=== PATIENT | female | born 1950 | race Caucasian/White ===

== ENCOUNTER 2016-12-27 18:39 | Emergency (ER) | payer OTHER ==
[~2016-12-27] VITALS: Ht 144.8 cm; Wt 70.3 kg
[2016-12-27] MEDS ORDERED: [UNRECOGNIZED DRUG - OTHER] (18:46)
[2016-12-27] MEDS ORDERED: PROZAC20 MG PO (18:47)
[2016-12-27] MEDS ORDERED: PROTONIX40 M4 (18:48)
[2016-12-27] MEDS ORDERED: MOBIC15 MG PO (20:43)
[2016-12-27 20:45] VITALS: BP 145/79
[2016-12-27] MEDS ORDERED: NORCO 5-325 TA1 EACH PO (20:50)
== END 2016-12-27 21:17 | disposition home or self-care (01) ==
LOC: ER 18:39
DX: S22.42XA Multiple fractures of ribs, left side, initial encounter for closed fracture (principal); S16.1XXA Strain of muscle, fascia and tendon at neck level, initial encounter; F32.9 Major depressive disorder, single episode, unspecified; Z90.711 Acquired absence of uterus with remaining cervical stump; V43.52XA Car driver injured in collision with other type car in traffic accident, initial encounter; Y93.I9 Activity, other involving external motion; Y92.481 Parking lot as the place of occurrence of the external cause; Y99.8 Other external cause status

== ENCOUNTER 2017-02-14 11:46 | Inpatient (IN) | payer OTHER ==
[~2017-02-14] VITALS: Ht 144.8 cm; Wt 80.5 kg
--- NOTE | ~2017-02-14 | EKG ---
[address] [employer] [place] [address] ELECTROCARDIOGRAM REPORT Name: LUIS E DAVE Room #: 170-4 ADM IN M.R.#: [id number] Admission: 02/14/17 Attend Phys: Peter Dang MD Discharge: Date of : 48 Report #: [id number] THIS REPORT FOR: //name// [facility] ED Test Date: 2017-02-14 Test Time: 11:50:54 Pat Name: LUIS E DAVE Department: Room: 170 Gender: F [employer] Former: [id number] : 1950 Requested By: Robert Stone Order Number: [id number] MD: Marcelo Monge Measurements Intervals [place] Rate: 66 P: 19 OR: 145 QRS: 17 QRSD: 93 T: 57 QT: 464 QTc: 487 Interpretive Statements Sinus rhythm Abnormal R-wave progression, early transition Borderline prolonged QT interval No previous ECG available for comparison Electronically Signed On 02-14-2017 17:19:13 CDT by Marcelo Monge [email or web address] <ELECTRONICALLY SIGNED> By: Marcelo Monge MD, [facility] 02/14/17 1719 1150 1150 Marcelo Monge MD, [facility] /EPI
[~2017-02-14 11:46] MED LIST: MOBIC15 MG PO; NORCO 5-325 TA1 EACH PO; PROTONIX40 M4; PROZAC20 MG PO; [UNRECOGNIZED DRUG - OTHER]
[2017-02-14 11:47] VITALS: BP 132/69
[2017-02-14 12:26] LABS: ABSOLUTE NEUTROPHILS 5.1 thou/uL (1.4-8.2); BASOPHILS 0.7 % (0.0-2.0); EOSINOPHILS 5.7 % (0.0-3.0); HEMATOCRIT 37.3 % (37.0-47.0); HEMOGLOBIN 12.7 gm/dL (12.0-15.0); LYMPHOCYTES 19.5 % (24.0-44.0); MCH 29.1 pg (26.0-34.0); MCV 85.7 fL (80.0-100.0); MONOCYTES 5.9 % (1.0-8.0); PLATELET COUNT 320 thou/uL (150-400); POLYS 68.2 % (36.0-66.0); RBC 4.36 mil/uL (4.20-5.00); RDW 14.2 % (10.5-14.5); WBC 7.4 thou/uL (4.0-11.0)
[2017-02-14 12:28] LABS: MANUAL DIFF NO
[2017-02-14 12:44] LABS: ANION GAP 8 mmol/L (7-16); BUN 29 mg/dL (7-18); CALCIUM 8.5 mg/dL (8.5-10.1); CHLORIDE 104 mmol/L (98-107); CO2 26 mmol/L (21-32); CREATININE 0.9 mg/dL (0.6-1.0); GLUCOSE 123 mg/dL (74-106); POTASSIUM 3.6 mmol/L (3.5-5.1); SODIUM 138 mmol/L (136-145)
[2017-02-14 12:48] LABS: ALBUMIN 3.2 g/dL (3.4-5.0); ALKALINE PHOSPHATASE 119 U/L (46-116); DIRECT BILIRUBIN < 0.1 mg/dL (<0.1-0.3); SALICYLATE < 2.8 mg/dL (2.8-20.0); SGOT 43 U/L (15-37); SGPT 56 U/L (30-65); TOTAL BILIRUBIN 0.4 mg/dL (<0.1-1.0); TOTAL PROTEIN 6.4 g/dL (6.4-8.2)
[2017-02-14 13:11] LABS: URINE BILIRUBIN NEGATIVE (Negative); URINE BLOOD NEGATIVE (Negative); URINE COLOR YELLOW; URINE GLUCOSE-RANDOM* NEGATIVE (Negative); URINE KETONES NEGATIVE (Negative); URINE NITRITE NEGATIVE (Negative); URINE PROTEIN (DIPSTICK) NEGATIVE (Negative); URINE UROBILINOGEN 0.2 E.U./dl (0.2-1.0)
[2017-02-14 13:18] LABS: AMP/METHAMP Negative (Negative); BARBITURATES Negative (Negative); BENZODIAZEPINES Negative (Negative); COCAINE Negative (Negative); METHADONE Negative (Negative); OPIATES Negative (Negative); PCP Negative (Negative); THC Negative (Negative)
[2017-02-14 15:01] VITALS: BP 120/60
[2017-02-14 19:00] VITALS: BP 111/67
[2017-02-14 21:25] VITALS: BP 112/64
[2017-02-15 04:53] VITALS: BP 114/65
[2017-02-15 06:09] LABS: HEMATOCRIT 33.6 % (37.0-47.0); HEMOGLOBIN 11.3 gm/dL (12.0-15.0); MCH 29.1 pg (26.0-34.0); MCHC 33.6 g/dL (28.0-37.0); MCV 86.9 fL (80.0-100.0); RBC 3.87 mil/uL (4.20-5.00); RDW 14.7 % (10.5-14.5); WBC 7.6 thou/uL (4.0-11.0)
[2017-02-15 06:21] LABS: CALCIUM 8.2 mg/dL (8.5-10.1); CREATININE 1.1 mg/dL (0.6-1.0); POTASSIUM 3.7 mmol/L (3.5-5.1)
[2017-02-15 07:42] VITALS: BP 116/61
[2017-02-15 11:32] VITALS: BP 128/67
[2017-02-15 12:57] VITALS: BP 128/67
== END 2017-02-15 14:40 | disposition home or self-care (01) | DRG 917 ==
LOC: ER 11:46 → 4W 15:08 → EROBS 15:08 → 4W 17:23 → ENTRNSPT 02-15 14:35 → EDTRNSPTSTS 02-15 14:37 → 4W 02-15 14:40
PROVIDERS: Hospitalist; Nurse Practitioner
DX: T42.4X1A Poisoning by benzodiazepines, accidental (unintentional), initial encounter (principal); G92 Toxic encephalopathy; T48.4X2A Poisoning by expectorants, intentional self-harm, initial encounter; T48.3X2A Poisoning by antitussives, intentional self-harm, initial encounter; K21.9 Gastro-esophageal reflux disease without esophagitis; F32.9 Major depressive disorder, single episode, unspecified; Z90.710 Acquired absence of both cervix and uterus; Y92.89 Other specified places as the place of occurrence of the external cause
CPT/HCPCS: 10045